=== PATIENT | male | born 1965 | race Asian ===

== ENCOUNTER 2017-05-26 14:39 | Emergency (ER) | payer OTHER ==
[~2017-05-26 14:39] MED LIST: ISOVUE-370 76%-LOCM 1 ML ONE
[2017-05-26] MEDS ORDERED: Ondansetron HCl/PF 4 MG/2 ML Vial ONE (15:08)
[2017-05-26] MEDS ORDERED: Morphine 4 MG/ML VIAL ONE ×4 (15:08→18:49)
[2017-05-26 15:14] LABS: #Eosinphils 0.1 thou/uL (0.0-0.7); #Neutrophils 9.4 thou/uL (1.40-6.50); %Basophils 0.3 % (0.0-1.0); %Eosinophils 0.8 % (0.0-10.0); %Lymphocytes 8.3 % (21.0-51.0); %Monocytes 8.6 % (0.0-10.0); Hematocrit 44.3 % (42.0-52.0); White Blood Cell (WBC) Count 11.5 thou/uL (4.8-10.8)
[2017-05-26 15:31] LABS: ALT (SGPT) 23 U/L (8-55); AST (SGOT) 19 U/L (5-34); Alkaline Phosphatase 58 U/L (40-150); Anion Gap 11 mmol/L (10-20); BUN (Urea Nitrogen) 17 mg/dL (8.9-20.6); Bilirubin, Total 0.6 mg/dL (0.2-1.2); Calc. Creatinine Clearance 0 mL/min (70-130); Calcium 9.2 mg/dL (7.8-10.44); Carbon Dioxide 26 mmol/L (22-29); Chloride 105 mmol/L (98-107); Estimated GFR-MDRD 70; Globulin 3.1 g/dL (2.4-3.5); Protein, Total 7.7 g/dL (6.0-8.3)
[2017-05-26] MEDS ORDERED: Potassium Chloride 20 MEQ TAB ONE (16:05)
--- NOTE | 2017-05-26 16:21 | ULT ---
GALLBLADDER ULTRASOUND: Date: 05/26/17 CLINICAL HISTORY: Right upper quadrant pain. FINDINGS: There is a focus of altered echotexture approximating 5.0 cm within the hepatic parenchyma, which is nonspecific on the basis of this exam. The gallbladder is contracted and not reliably assessed. Nallely hepatic ascites is present. Glez's sign is reported as positive by the auctioneer art. The imaged comm on duct is normal in diameter at 3.0 mm. IMPRESSION: 1. Complex region of altered echotexture within the hepatic parenchyma. Recommend follow-up with CT abdomen exam utilizing hemangioma protocol. 2. Contracted gallbladder, limiting assessment. 3. Perihepatic ascites. 4. Positive Glez's sign. Correlate clinically. POS: [facility]
[2017-05-26] MEDS ORDERED: Lisinopril 10 MG TAB ONE (17:27)
--- NOTE | 2017-05-26 17:27 | CT ---
CT ABDOMEN AND PELVIS: Date: 05/26/17 HISTORY: Right upper quadrant pain, cramping, right shoulder pain. TECHNIQUE: Serial axial CT imaging is obtained at 5 mm intervals from the lung bases through the pubic symphysis with IV contrast. Coronal reformatted imaging obtained. In addition, a delayed phase axial series wa s performed through the abdomen with coronal reformatted imaging. FINDINGS: There is mild increased linear density in both lung bases suggesting infiltrate and/or volume loss. L ack of oral contrast limits assessment of bowel. No free intraperitoneal air is noted. There is a nonspecific peripheral lesion within the right lobe of the liver which is mottled in atten uation and is hypodense with respect to the adjacent hepatic parenchyma, Hounsfield units in the 60-6 5% range. This lesion demonstrates no interval change in appearance on delayed phase imaging. It abut s the capsule of the liver. Adjacent to this is a prominent subcapsular fluid collection of mixed int ernal density, evidence of a prominent associated subcapsular hematoma, evidence that this lesion has ruptured through the capsule. On image 16 of series 2, there is a linear area of hyperdensity within the subcapsular collection suggesting active extravasation. The spleen is grossly unremarkable. There is small volume hemoperitoneum adjacent to the superior asp ect of the spleen. The stomach contains debris. The gallbladder, pancreas, adrenal glands, and kidney s are unremarkable. There is a moderate amount of high density fluid within the pelvis, evidence of hemoperitoneum as wel l. Limited assessment of the bowel appears grossly unremarkable. There is no evidence for bowel obstruct ion. Vascular structures of abdomen/pelvis are patent. No enlarged pelvic, retroperitoneal, or mesenteric lymph nodes are noted. No acute osseous abnormality is seen. There are degenerative changes involving bilateral sacroiliac joints and there are degenerative garcia es within the imaged spine with multilevel disc space narrowing and osteophyte formation. There is a sclerotic lesion within the acetabulum on the right, likely representing a benign bone isl and in the absence of known metastatic disease, measuring 1.1 cm, best seen on axial image 92. There is a small hypodense lesion in the lower pole of the right kidney measuring less than 1.0 cm in size, too small to definitively characterize. This may represent a small cyst. IMPRESSION: Nonspecific peripheral hypodense heterogeneous lesion within the right lobe of the liver, which has r uptured through the capsule of the liver with a prominent adjacent subcapsular hematoma/complex subca psular fluid collection. Linear hyperdensity within the collection suggests active extravasation of c ontrast on the basis of hemorrhage. Hemoperitoneum is noted within the pelvis and left upper quadrant . The delayed phase imaging does not demonstrate evidence that this definitely represents a hemangioma. Differential diagnosis for this liver lesion includes benign and malignant etiologies, including hep atic adenoma, hemangioma, metastatic disease, and hepatocellular carcinoma. Abscess is not fully excl uded either, but no internal gas is seen. Results called to Dr. Culver at 1710 hours on 05/26/17. Once the patient has stabilized and the hematoma has resolved, recommend a follow-up MRI of the abdom en with and without contrast to evaluate this lesion further. Correlation with alphafetoprotein level s are suggested as well. CODE CR. POS: [facility]
[2017-05-26 19:15] LABS: #Eosinphils 0.1 thou/uL (0.0-0.7); #Lymphocytes 1.7 thou/uL (1.20-3.40); #Monocytes 1.2 thou/uL (0.11-0.59); #Neutrophils 7.8 thou/uL (1.40-6.50); %Basophils 0.4 % (0.0-1.0); %Eosinophils 0.9 % (0.0-10.0); %Lymphocytes 15.8 % (21.0-51.0); %Monocytes 10.8 % (0.0-10.0); Hematocrit 42.3 % (42.0-52.0); Mean Platelet Volume 7.3 fL (7.4-10.4); Red Blood Cell (RBC) Count 4.41 mill/uL (4.70-6.10); White Blood Cell (WBC) Count 10.8 thou/uL (4.8-10.8)
--- NOTE | 2017-06-15 10:43 | EKG ---
Test Reason : Blood Pressure : / mmHG Vent. Rate : 078 BPM Atrial Rate : 078 BPM P-R Int : 156 ms QRS Dur : 098 ms QT Int : 386 ms P-R-T Axes : 033 060 047 degrees QTc Int : 440 ms Normal sinus rhythm Normal ECG Confirmed by ELANA MCKEON M.D. ([id number]), digital editor ERIN EPPS ([id number]) on 06/15/2017 10:42:53 AM Referred By: Confirmed By:ELANA MCKEON M.D.
== END 2017-05-26 19:13 | disposition short-term general hospital (02) ==
LOC: ERS 14:39
DX: R16.0 Hepatomegaly, not elsewhere classified (principal); G47.30 Sleep apnea, unspecified; I10 Essential (primary) hypertension; Z79.899 Other long term (current) drug therapy
CPT/HCPCS: 36415; 74177; 76705; 80053; 83690; 83735; 85025; 86850; 86900; 86901; 93005; 96361; 96374; 96375; 96376; J2270; J2405

== ENCOUNTER 2017-06-06 15:41 | Outpatient (CLI) | payer OTHER ==
--- NOTE | 2017-06-06 16:46 | CT ---
CT OF CHEST PERFORMED WITH INTRAVENOUS CONTRAST ENHANCEMENT: 06/06/17 HISTORY: Staging for hepatocellular carcinoma. Patient had a partial hepatectomy performed 05/30/17. COMPARISON: 05/26/17 CT examination. There are right lower lobe atelectatic lung changes seen which are probably related to patient's rece nt surgery. No pulmonary nodules are identified. No significant mediastinal or hilar adenopathy. There appears to be some heterogeneity to the right and to a lesser extent left lobe of the thyroid p robably related to thyroid nodules. Further characterization with ultrasound would be recommended. No axillary adenopathy. There is what is probably a postoperative fluid collection in the right lobe of the liver related to the surgical resection of right lobe liver mass. This has some air density within it and other densit y which could represent hematoma or some type of packing material. It measures 8.1 cm in maximum dime nsion. There is also some persistent subcapsular fluid present. These changes could be on the basis of the recent surgery. The possibility of a developing abscess given the air cannot be excluded but c ould be entirely postsurgical in origin. The findings discussed with Dr. Power who says the patient shows no symptoms that would suggest abscess. IMPRESSION: 1. Atelectatic changes of the right lower lobe. 2. Postoperative changes of the right lobe of the liver as discussed above. POS: [facility]
== END 2017-06-06 15:42 | disposition home or self-care (01) ==
LOC: SCSCT 15:41
PROVIDERS: ATTEND Internal Medicine Hematology & Oncology
DX: C22.0 Liver cell carcinoma (principal); Z98.890 Other specified postprocedural states
CPT/HCPCS: 36415; 71260; 82105

== ENCOUNTER 2021-10-17 12:04 | Outpatient (CLI) | payer BC ==
[~2021-10-17 12:04] MED LIST changes: -ISOVUE-370 76%-LOCM 1 ML ONE; +Magnevist 469MG/ML 20 ML VIAL ONE
== END 2021-10-17 12:05 | disposition home or self-care (01) ==
LOC: CT 12:04
PROVIDERS: ATTEND Internal Medicine Hematology & Oncology
DX: C18.3 Malignant neoplasm of hepatic flexure (principal)
CPT/HCPCS: 71250; 72197; 74183; A9579

== ENCOUNTER 2022-04-04 08:59 | Outpatient (CLI) | payer BC ==
[2022-04-04] MEDS ORDERED: Magnevist 469MG/ML 20 ML VIAL ONE ×2 (10:38)
== END 2022-04-04 09:00 | disposition home or self-care (01) ==
LOC: CT 08:59
PROVIDERS: ATTEND Internal Medicine Hematology & Oncology
DX: C18.3 Malignant neoplasm of hepatic flexure (principal)
CPT/HCPCS: 71250; 72197; 74183; A9579

== ENCOUNTER 2025-02-16 12:55 | Outpatient (CLI) | payer BC | END 2025-02-16 12:56 | disposition home or self-care (01) | LOC: BICRAD 12:55 | PROVIDERS: ATTEND Family Medicine | DX: M25.512 Pain in left shoulder (principal) ==

== ENCOUNTER 2025-03-22 14:31 | Outpatient (CLI) | payer BC | END 2025-03-22 14:32 | disposition home or self-care (01) | LOC: SCSMRI 14:31 | PROVIDERS: ATTEND Internal Medicine Hematology & Oncology | DX: C18.3 Malignant neoplasm of hepatic flexure (principal) | CPT/HCPCS: 74183 ==